=== PATIENT | female | born 1940 | race Two or more races ===

== ENCOUNTER 2018-07-29 11:00 | Outpatient (AMBR) | payer MEDICARE, MEDICAID, SELFPAY ==
--- NOTE | 2018-07-13 12:19 | PT.OIERPT ---
PT OP Initial Eval Patient Information Visit Reasons: post-op Medical Diagnosis: S52.591D Treatment Dx #1: Right Wrist Mobility Deficits Treatment Dx #2: Right Hand Weakness Start of Care: 07/13/18 Date of Onset: 06/22/18 Initial Assessment Subjective Pt is a 78 y/o female s/p right distal radius ORIF secondary to fall at home. Pt mention that she still has a lot of pain (7/10). Pt still has difficulty with gripping activities, lifting, chores, self, cooking, cleaning, and performing her recreational activities. Objective Right Wrist AROM Flexion: 10 deg Extension: neutral Radial Deviation: neutral Ulnar Deviation: 10 deg Pronation: 20 deg Supination: 30 deg Right Wrist MMTs: grossly 2-/5 Right 1st-5 digit flexion AROM 40% towards end range DASH score: 73% disabled Assessment Pt demonstrate right wrist mobility deficits with hand weakness s/p ORIF leading to decline function. Pt will benefit from physical therapy to increase strength, mobility, and work on functional tasks. 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 1) Decrease DASH score to 40% and improved right wrist AROM WFL in 8 wks to be able to perform chores at home 2) Increase right wrist MMTs to 3+/5 in 8 wks to be able to perform gripping activities 3) Decrease wrist pain to 3/10 in 8 wks to be able to perform self care activities 4) Indep with HEP Treatment Plan 1) Manual Therapy 2) Therapeutic Activities 3) Therapeutic Exercises 4) Modalities (ice, heat) Frequency and Duration 2 x wk for 8 wks Certification Dates: 07/13/18 to 10/11/18 Office Procedures PT Outpatient G-Codes Date of Service PT Date of Service: 07/13/18 G-Codes Carry/Moving/Handling Objects Carry Current Status G-Code: G8984: CL 60-80% Carry Goal Status G-Code:G8985: CJ 20-40% PT Procedures PT Date of Service: 07/13/18 OP PT Eval Mod Complex 30 minutes: Yes
--- NOTE | 2018-07-16 09:46 | PT.ODAYNRPT ---
PT Outpatient Daily Note Date of Service: July 16, 2018 OP Daily Note Visit Reasons: post-op Outpatient Physical Therapy Treatment Date: 07/16/18 Subjective: Pt's hand is feeling better. Pt notice that she can move her fingers with less pain. Objective: Please see flow chart for list of ther ex performed Assessment: improved finger flexion after therapy session. minimal pain throughout PT session Plan: Continue with PT Length of Time (minutes) of Treatment: 30 Minutes Office Procedures PT Outpatient G-Codes Date of Service PT Date of Service: 07/13/18 G-Codes Carry/Moving/Handling Objects Carry Current Status G-Code: G8984: CL 60-80% Carry Goal Status G-Code:G8985: CJ 20-40% PT Procedures PT Date of Service: 07/13/18 OP PT Eval Mod Complex 30 minutes: Yes PT Procedures PT Date of Service: 07/16/18 Therapeutic Exercise 30 minutes: Yes
--- NOTE | 2018-07-29 12:17 | PTNOTE_ITS ---
PT Outpatient Daily Note Date of Service: July 29, 2018 OP Daily Note Visit Reasons: post-op Outpatient Physical Therapy Treatment Date: 07/29/18 Subjective: Pt's wrist and hand is feeling a little better. Pt has been doing her exercises at home. Objective: Please see flow chart for list of ther ex performed Assessment: improved wrist AROM and finger motions. Pt is 50% towards making a full fist Plan: Continue with PT Length of Time (minutes) of Treatment: 30 Minutes Office Procedures PT Outpatient G-Codes Date of Service PT Date of Service: 07/13/18 G-Codes Carry/Moving/Handling Objects Carry Current Status G-Code: G8984: CL 60-80% Carry Goal Status G-Code:G8985: CJ 20-40% PT Procedures PT Date of Service: 07/13/18 OP PT Eval Mod Complex 30 minutes: Yes PT Procedures PT Date of Service: 07/16/18 Therapeutic Exercise 30 minutes: Yes PT Procedures PT Date of Service: 07/29/18 Therapeutic Exercise 15 minutes: Yes Manual Bilingual Executive Assistant 15 minutes: Yes
== END 2018-08-03 23:59 | disposition home or self-care (01) ==
PROVIDERS: PCP Family Medicine; Referring Provider Family Medicine; Visit Provider Orthopaedic Surgery
DX: S52.591D Other fractures of lower end of right radius, subsequent encounter for closed fracture with routine healing (principal); W19.XXXD Unspecified fall, subsequent encounter; Z98.890 Other specified postprocedural states; I10 Essential (primary) hypertension
CPT/HCPCS: 97110; 97140; 97162; G8984; G8985

== ENCOUNTER 2018-09-03 10:30 | Outpatient (AMBR) | payer MEDICARE, MEDICAID, SELFPAY ==
--- NOTE | 2018-08-05 12:31 | PT.ODAYNRPT ---
PT Outpatient Daily Note Date of Service: August 05, 2018 OP Daily Note Visit Reasons: post op Outpatient Physical Therapy Treatment Date: 08/05/18 Subjective: Pt's wrist feels much better. Pt mention that she's been doing her exercises at home. Pt fingers feels a lot more straight now. Pt still has difficulty with making a fist Objective: Please see flow chart for list of ther ex performed Assessment: 75% towards making a full fist. Pt still exhibit hypomobile MCP and PIP joint limiting full finger flexion. Notice mild swelling around her 2-4th digit and advised patient to ice at home Plan: Continue with PT Length of Time (minutes) of Treatment: 30 Minutes Office Procedures PT Procedures PT Date of Service: 08/05/18 Therapeutic Exercise 30 minutes: Yes
--- NOTE | 2018-08-07 14:09 | PT.ODAYNRPT ---
PT Outpatient Daily Note Date of Service: August 07, 2018 OP Daily Note Visit Reasons: post op Outpatient Physical Therapy Treatment Date: 08/07/18 Subjective: pt did follow up with surgeon yesterday and was prescribed medications for her R hand. pt states she uses warm luke water with salt to help with the swelling at home. Objective: see flow sheet. Assessment: observed a lot of swelling of the hand upon visit. pt likes to compensate by using the other hand to complete the ROM but cued pt to not use the L hand and focus on AROM of the R hand. used the wall to assist with wrist stretches in which she had difficulty with posture as she compensates due to lack of mobility of the wrist. PROM after the ther ex. pt tends to assist during PROM after cuing her to relax the hand she was able to tolerate better. still limited in all planes due to pain and swelling. Plan: continue POC per PT. Length of Time (minutes) of Treatment: 30 Minutes Office Procedures PT Procedures PT Date of Service: 08/05/18 Therapeutic Exercise 30 minutes: Yes PT Procedures PT Date of Service: 08/07/18 Therapeutic Exercise 30 minutes: Yes
--- NOTE | 2018-08-11 12:05 | PT.ODAYNRPT ---
PT Outpatient Daily Note Date of Service: August 11, 2018 OP Daily Note Visit Reasons: post op Outpatient Physical Therapy Treatment Date: 08/11/18 Subjective: Pt's hand feels better. Pt mention that she's getting closer to making a fist. Pt still has difficulty with gripping and lifting light object due to inability to make a fist Objective: Please see flow chart for list of ther ex performed Assessment: continue to improve with overall finger fist, frequent cues to correct power web flexion and extension exercise; Pt has the tendency to insert finger to far into web. No change in overall swelling of the finger. Plan: Continue with PT Length of Time (minutes) of Treatment: 30 Minutes Office Procedures PT Procedures PT Date of Service: 08/05/18 Therapeutic Exercise 30 minutes: Yes PT Procedures PT Date of Service: 08/07/18 Therapeutic Exercise 30 minutes: Yes PT Procedures PT Date of Service: 08/11/18 Therapeutic Exercise 30 minutes: Yes
--- NOTE | 2018-08-14 12:26 | PT.ODAYNRPT ---
PT Outpatient Daily Note Date of Service: August 14, 2018 OP Daily Note Visit Reasons: post op Outpatient Physical Therapy Treatment Date: 08/14/18 Subjective: Pt mention that her hands feel stiff today. Pt has been doing her exercises but working more on the fingers than nuckles Objective: Please see flow chart for list of the ex performed Assessment: tolerate exercises with minimal pain; slowly improving with finger AROM, however, 2nd and 3rd digit still hypomobile leading to decrease finger flexion Plan: Continue with PT Length of Time (minutes) of Treatment: 30 Minutes Office Procedures PT Procedures PT Date of Service: 08/05/18 Therapeutic Exercise 30 minutes: Yes PT Procedures PT Date of Service: 08/07/18 Therapeutic Exercise 30 minutes: Yes PT Procedures PT Date of Service: 08/11/18 Therapeutic Exercise 30 minutes: Yes PT Procedures PT Date of Service: 08/14/18 Therapeutic Exercise 30 minutes: Yes
--- NOTE | 2018-08-21 11:53 | PT.ODAYNRPT ---
PT Outpatient Daily Note Date of Service: August 21, 2018 OP Daily Note Visit Reasons: post op Outpatient Physical Therapy Treatment Date: 08/21/18 Subjective: pt continues to have pain of the hand upon visit. pt states compliance with HEP. pt is working on PIP flexion at home. Objective: see flow sheet. Assessment: pt demonstrated how close her fingers are in touching the palm of the hand. a lot of muscle fatigue with ther ex as she is motivated in getting better and stronger. pt pushes herself through the exercises. limited PIP flexion with ther ex. added finger ladder to help improve flexion of the digits. pt was able to flex the 2nd digit better than the rest but she continued with the exercise. advised pt to continue with HEP. Plan: continue POC per PT. Length of Time (minutes) of Treatment: 30 Minutes Office Procedures PT Procedures PT Date of Service: 08/05/18 Therapeutic Exercise 30 minutes: Yes PT Procedures PT Date of Service: 08/07/18 Therapeutic Exercise 30 minutes: Yes PT Procedures PT Date of Service: 08/21/18 Therapeutic Exercise 30 minutes: Yes PT Procedures PT Date of Service: 08/11/18 Therapeutic Exercise 30 minutes: Yes PT Procedures PT Date of Service: 08/14/18 Therapeutic Exercise 30 minutes: Yes
--- NOTE | 2018-08-24 13:20 | PT.ODAYNRPT ---
PT Outpatient Daily Note Date of Service: August 24, 2018 OP Daily Note Visit Reasons: post op Outpatient Physical Therapy Treatment Date: 08/24/18 Subjective: Pt mention that her hand still feels very stiff. Pt still has difficulty with making a full fist. Objective: Please see flow chart for list of ther ex performed Assessment: tolerate exercises with minimal pain; still exhibit hypomobile MCP joint 1st-5th digit Plan: Continue with PT Length of Time (minutes) of Treatment: 30 Minutes Office Procedures PT Procedures PT Date of Service: 08/05/18 Therapeutic Exercise 30 minutes: Yes PT Procedures PT Date of Service: 08/07/18 Therapeutic Exercise 30 minutes: Yes PT Procedures PT Date of Service: 08/21/18 Therapeutic Exercise 30 minutes: Yes PT Procedures PT Date of Service: 08/24/18 Therapeutic Exercise 30 minutes: Yes PT Procedures PT Date of Service: 08/11/18 Therapeutic Exercise 30 minutes: Yes PT Procedures PT Date of Service: 08/14/18 Therapeutic Exercise 30 minutes: Yes
--- NOTE | 2018-08-27 13:33 | PT.ODAYNRPT ---
PT Outpatient Daily Note Date of Service: August 27, 2018 OP Daily Note Visit Reasons: post op Outpatient Physical Therapy Treatment Date: 08/27/18 Subjective: pt states having soreness from sci-fit after last visit. pt is very compliant with HEP. Objective: see flow sheet. Assessment: noted less rest breaks during ther ex as indication of improved endurance and strength. at one point pt lost count of the reps but it did not seem to bother her as she felt no fatigue. pt does some weakness when flexing the PIP and DIP but she continues with the reps despite the limited strength with ball squeeze. Plan: continue POC per PT. Length of Time (minutes) of Treatment: 30 Minutes Office Procedures PT Procedures PT Date of Service: 08/05/18 Therapeutic Exercise 30 minutes: Yes PT Procedures PT Date of Service: 08/07/18 Therapeutic Exercise 30 minutes: Yes PT Procedures PT Date of Service: 08/21/18 Therapeutic Exercise 30 minutes: Yes PT Procedures PT Date of Service: 08/24/18 Therapeutic Exercise 30 minutes: Yes PT Procedures PT Date of Service: 08/11/18 Therapeutic Exercise 30 minutes: Yes PT Procedures PT Date of Service: 08/14/18 Therapeutic Exercise 30 minutes: Yes PT Procedures PT Date of Service: 08/27/18 Therapeutic Exercise 30 minutes: Yes
--- NOTE | 2018-09-01 11:13 | PT.ODS1RPT ---
PT OP Progress/Discharge Note Date of Service: September 01, 2018 Progress Note/DC Note Progress Note/Discharge Note: Progress Note Patient Information Visit Reasons: post op Medical Diagnosis: S52.591D Treatment Dx #1: Right Wrist Mobility Deficits Treatment Dx #2: Right Hand Weakness Service Continue Service or Discharge: Continue Service Certification Date Certification Dates: 09/01/17 to 11/30/18 Status Subjective: Pt mention that her fingers and hand is still stiff. Pt has difficulty with gripping, lifting, chores, cooking, and performing her recreational activities. Pt mention that she continues to do her HEP but it doesn't seems to help improve her AROM. Pt still has 6/10 pain with and without activities. Objective: Right Wrist AROM Flexion: 40 deg Extension: 20 deg Radial Deviation: 10 deg Ulnar Deviation: 15 deg Pronation/Supination: WFL Right Wrist MMTs: grossly 3-/5 Right 1st Digit-5th flexion AROM: 60% towards end range Palpation: hypomobile MCP joint 2nd and 3rd digit Assessment: Pt slowly improves with wrist AROM and finger mobility allowing her to perform light ADLs at home. Pt's slow progression relates to perform HEP incorrectly at home as well as not doing her exercises frequently. Pt educated to continue HEP at home to help increase wrist and finger mobility at a faster rate. Due to Pt's slow progression Pt still has difficulty with gripping, lifting, cooking independently, and performing her chores around the house. Pt has not met set goals yet and will continue to benefit from PT, thank you for your referrals. Plan: Continue with PT and add 8 sessions (2 x wk for 4 wks) Office Procedures PT Procedures PT Date of Service: 08/05/18 Therapeutic Exercise 30 minutes: Yes PT Procedures PT Date of Service: 08/07/18 Therapeutic Exercise 30 minutes: Yes PT Procedures PT Date of Service: 08/21/18 Therapeutic Exercise 30 minutes: Yes PT Procedures PT Date of Service: 08/24/18 Therapeutic Exercise 30 minutes: Yes PT Procedures PT Date of Service: 08/11/18 Therapeutic Exercise 30 minutes: Yes PT Procedures PT Date of Service: 08/14/18 Therapeutic Exercise 30 minutes: Yes PT Procedures PT Date of Service: 08/27/18 Therapeutic Exercise 30 minutes: Yes PT Procedures PT Date of Service: 09/01/18 Therapeutic Exercise 15 minutes: Yes Manual Horse Trekking Guide 15 minutes: Yes Self Care/Home Mgmt 15 minutes: Yes
--- NOTE | 2018-09-03 12:05 | PT.ODAYNRPT ---
PT Outpatient Daily Note Date of Service: September 03, 2018 OP Daily Note Visit Reasons: post op Outpatient Physical Therapy Treatment Date: 09/03/18 Subjective: pt doing well today as she mentioned she picked fruit from her back yard with the R hand but when she had to reach for the higher ones she used the L hand. Objective: see flow sheet. Assessment: pt first attempted the Yellow resistance with exercises and it seemed to easy for her so we switched to the Red resistance which is a level higher. pt did well with that one as it was causing her muscles to contract more and had muscle fatigue but she did not mind. added light resistance to the sci-fit and she did well as in she did not stop for rest nor c/o too much resistance. pt was able to maintain good speed without rest. Plan: continue POC per PT. Length of Time (minutes) of Treatment: 30 Minutes Office Procedures PT Procedures PT Date of Service: 08/05/18 Therapeutic Exercise 30 minutes: Yes PT Procedures PT Date of Service: 08/07/18 Therapeutic Exercise 30 minutes: Yes PT Procedures PT Date of Service: 08/21/18 Therapeutic Exercise 30 minutes: Yes PT Procedures PT Date of Service: 08/24/18 Therapeutic Exercise 30 minutes: Yes PT Procedures PT Date of Service: 08/11/18 Therapeutic Exercise 30 minutes: Yes PT Procedures PT Date of Service: 08/14/18 Therapeutic Exercise 30 minutes: Yes PT Procedures PT Date of Service: 08/27/18 Therapeutic Exercise 30 minutes: Yes PT Procedures PT Date of Service: 09/01/18 Therapeutic Exercise 15 minutes: Yes Manual Manager Relationship 15 minutes: Yes Self Care/Home Mgmt 15 minutes: Yes PT Procedures PT Date of Service: 09/03/18 Therapeutic Exercise 30 minutes: Yes
== END 2018-09-03 23:59 | disposition home or self-care (01) ==
PROVIDERS: PCP Family Medicine; Referring Provider Family Medicine; Visit Provider Family Medicine
DX: M25.531 Pain in right wrist (principal); R53.1 Weakness; S52.591D Other fractures of lower end of right radius, subsequent encounter for closed fracture with routine healing; W19.XXXD Unspecified fall, subsequent encounter
CPT/HCPCS: 97110; 97140; 97535

== ENCOUNTER → 2024-08-30 | Outpatient (CLI) | payer OTHER, MEDICAID, SELFPAY ==
[2024-08-30 14:57] LABS: Collection Type, Urine Clean Catch
[2024-08-30 16:00] LABS: Bilirubin,Urine Negative (Negative); Blood,Urine 1+ (Negative); Clarity,Urine Turbid (Clear/Hazy); Color,Urine Yellow (Lt Yel-Yel); Glucose, Urine Negative (Negative); Ketones,Urine Negative (Negative); Leukocyte Esterase,Urine Positive (Negative); Nitrite,Urine Positive (Negative); PH,Urine 6.5 (5.0-7.0); Protein,Urine Trace (Neg - Trace); RBC,Urine 13 /hpf (0-3); Specific Gravity,Urine 1.013 (1.001-1.035); Squamous Epithelial Cell,Urine 1 /hpf (0-5); Urobilinogen,Urine Negative mg/dL (0.0-1.0); WBC,Urine 161 /hpf (0-5)
== END | disposition home or self-care (01) ==
LOC: SLDO 14:51
PROVIDERS: PCP Specialist; Referring Provider Specialist; Visit Provider Specialist
DX: R30.0 Dysuria (principal)
CPT/HCPCS: 81001; 87077; 87086; 87186

== ENCOUNTER → 2024-09-22 | Outpatient (CLI) | payer OTHER, MEDICAID, SELFPAY ==
[2024-09-22 16:32] LABS: Basophils # (Auto) 0.1 Thou/mm3 (0.0-0.2); Basophils % (Auto) 1 % (0-2.5); Eosinophils # (Auto) 0.2 Thou/mm3 (0.0-0.5); Eosinophils % (Auto) 2 % (0-10); Hematocrit 38.8 % (36.0-46.0); Hemoglobin 12.6 g/dL (12.0-16.0); Immature Granulocytes % (Auto) 0 % (0-0); Immature Granulocytes Auto 0.02 Thou/mm3 (0.00-0.00); Lymphocytes # (Auto) 2.9 Thou/mm3 (1.0-4.8); Lymphocytes % (Auto) 32 % (10-50); Mean Corpuscular HGB Conc 32.5 g/dl (31.0-37.0); Mean Corpuscular Hemoglobin 28.8 pg (25.0-35.0); Mean Corpuscular Volume 89 fL (80-100); Monocytes # (Auto) 0.8 Thou/mm3 (0.0-0.8); Monocytes % (Auto) 8 % (0-12); Neutrophils # (Auto) 5.1 Thou/mm3 (1.8-7.7); Neutrophils % (Auto) 57 % (37-80); Nucleated Red Blood Cell % 0 /100 WBC (0); Platelet Count 231 Thou/mm3 (140-440); RDW Standard Deviation 41.7 fL (36.4-46.3); Red Blood Count 4.37 Miln/mm3 (4.00-5.20)
[2024-09-22 16:46] LABS: Alanine Aminotransferase 18 U/L (10-49); Albumin, Serum 4.2 gm/dL (3.4-4.8); Albumin/Globulin Ratio 1.4 (1.2-2.2); Alkaline Phosphatase 88 U/L (46-116); Anion Gap 10 (7-16); Aspartate Amino Transferase 24 U/L (0-34); BUN/Creatinine Ratio 25 Ratio (12-20); Bilirubin,Total 0.7 mg/dL (0.3-1.2); Blood Urea Nitrogen 20 mg/dL (9-23); C-Reactive Protein < 0.4 mg/dL (0.0-0.9); Calcium 9.8 mg/dL (8.3-10.6); Calcium (Corrected) 9.8 mg/dL (8.5-10.1); Carbon Dioxide 28.5 mMol/L (20.0-31.0); Chloride 102 mMol/L (98-107); Creatinine (Component) 0.8 mg/dL (0.6-1.3); Glucose 85 mg/dL (74-106); Osmolality,Calculated 281 (275-295); Potassium 4.9 mMol/L (3.4-5.1); Sodium 140 mMol/L (136-145); Total Protein 7.2 gm/dL (5.7-8.2); eGFR > 60 See Note
[2024-09-22 17:03] LABS: Sed Rate (ESR) 8 mm/hr (0-30)
[2024-09-22 17:38] LABS: Hepatitis A Antibody IgM Non Reactive (Non React); Hepatitis B Core Antibody IgM Non Reactive (Non React); Hepatitis B Surface Antigen Non Reactive (Non React); Hepatitis C Antibody Non Reactive (Non React)
[2024-09-30 06:50] LABS: CCP Antibody (IgG)* <16 Units
== END | disposition home or self-care (01) ==
LOC: COPL 13:39
PROVIDERS: PCP Family Medicine; Referring Provider Internal Medicine; Visit Provider Internal Medicine
DX: G62.9 Polyneuropathy, unspecified (principal); I10 Essential (primary) hypertension; M77.31 Calcaneal spur, right foot; M79.671 Pain in right foot; T45.8X Poisoning by, adverse effect of and underdosing of other primarily systemic and hematological agents; Z87.39 Personal history of other diseases of the musculoskeletal system and connective tissue
CPT/HCPCS: 36415; 80053; 80074; 85025; 85652; 86140; 86200

== ENCOUNTER → 2024-10-05 | Outpatient (CLI) | payer MEDICARE, MEDICAID, SELFPAY ==
[2024-10-05 12:56] LABS: Collection Type, Urine Clean Catch
[2024-10-05 13:11] LABS: Basophils # (Auto) 0.1 Thou/mm3 (0.0-0.2); Basophils % (Auto) 1 % (0-2.5); Eosinophils # (Auto) 0.1 Thou/mm3 (0.0-0.5); Eosinophils % (Auto) 1 % (0-10); Hematocrit 40.5 % (36.0-46.0); Hemoglobin 13.2 g/dL (12.0-16.0); Immature Granulocytes % (Auto) 0 % (0-0); Immature Granulocytes Auto 0.02 Thou/mm3 (0.00-0.00); Lymphocytes # (Auto) 2.4 Thou/mm3 (1.0-4.8); Lymphocytes % (Auto) 27 % (10-50); Mean Corpuscular HGB Conc 32.6 g/dl (31.0-37.0); Mean Corpuscular Hemoglobin 28.6 pg (25.0-35.0); Mean Corpuscular Volume 88 fL (80-100); Monocytes # (Auto) 0.6 Thou/mm3 (0.0-0.8); Monocytes % (Auto) 7 % (0-12); Neutrophils # (Auto) 5.6 Thou/mm3 (1.8-7.7); Neutrophils % (Auto) 64 % (37-80); Nucleated Red Blood Cell % 0 /100 WBC (0); Platelet Count 235 Thou/mm3 (140-440); RDW Standard Deviation 40.8 fL (36.4-46.3); Red Blood Count 4.61 Miln/mm3 (4.00-5.20); White Blood Count 8.8 Thou/mm3 (3.6-11.0)
[2024-10-05 13:12] LABS: Bilirubin,Urine Negative (Negative); Blood,Urine Negative (Negative); Clarity,Urine Clear (Clear/Hazy); Color,Urine Lt-Yellow (Lt Yel-Yel); Culture Indicated,Urine Not Indicated; Glucose, Urine Negative (Negative); Hyaline Casts,Urine < 1 /hpf (0-1); Ketones,Urine Negative (Negative); Leukocyte Esterase,Urine Negative (Negative); Nitrite,Urine Negative (Negative); Protein,Urine Negative (Neg - Trace); RBC,Urine 4 /hpf (0-3); Specific Gravity,Urine 1.012 (1.001-1.035); Squamous Epithelial Cell,Urine 1 /hpf (0-5); Urobilinogen,Urine Negative mg/dL (0.0-1.0); WBC,Urine 1 /hpf (0-5)
[2024-10-05 13:25] LABS: Vitamin D 25 Hydroxy Total 25.4 ng/mL (7.3-40.2)
[2024-10-05 13:34] LABS: Alanine Aminotransferase 18 U/L (10-49); Albumin, Serum 4.3 gm/dL (3.4-4.8); Albumin/Globulin Ratio 1.3 (1.2-2.2); Alkaline Phosphatase 84 U/L (46-116); Anion Gap 6 (7-16); Aspartate Amino Transferase 25 U/L (0-34); BUN/Creatinine Ratio 18 Ratio (12-20); Bilirubin,Total 0.8 mg/dL (0.3-1.2); Blood Urea Nitrogen 16 mg/dL (9-23); Calcium 9.6 mg/dL (8.3-10.6); Calcium (Corrected) 9.6 mg/dL (8.5-10.1); Carbon Dioxide 30.3 mMol/L (20.0-31.0); Chloride 106 mMol/L (98-107); Cholesterol 210 mg/dL (132-200); Creatinine (Component) 0.9 mg/dL (0.6-1.3); Globulin 3.3 gm/dL (2.3-3.5); Glucose 101 mg/dL (74-106); HDL Cholesterol 53 mg/dL (40-60); LDL Cholesterol,Calculated 120 mg/dL (0-130); Osmolality,Calculated 284 (275-295); Potassium 4.7 mMol/L (3.4-5.1); Sodium 142 mMol/L (136-145); Thyroid Stimulating Hormone 2.62 uIU/mL (0.55-4.78); Total Protein 7.6 gm/dL (5.7-8.2); Triglycerides 186 mg/dL (30-150); eGFR > 60 See Note
== END | disposition home or self-care (01) ==
LOC: COPL 12:15
PROVIDERS: PCP Family Medicine; Referring Provider Family Medicine; Visit Provider Family Medicine
DX: Z00.00 Encounter for general adult medical examination without abnormal findings (principal); Z13.0 Encounter for screening for diseases of the blood and blood-forming organs and certain disorders involving the immune mechanism; Z13.29 Encounter for screening for other suspected endocrine disorder; Z13.21 Encounter for screening for nutritional disorder; Z13.220 Encounter for screening for lipoid disorders; Z13.1 Encounter for screening for diabetes mellitus; Z12.11 Encounter for screening for malignant neoplasm of colon; Z83.3 Family history of diabetes mellitus
CPT/HCPCS: 36415; 80053; 80061; 81001; 82306; 84443; 85025

== ENCOUNTER → 2024-10-19 | Outpatient (CLI) | payer MEDICARE, MEDICAID, SELFPAY ==
[2024-10-25 06:55] LABS: Fecal Globin Result NOT DETECTED (NOT DETECTED)
== END | disposition home or self-care (01) ==
LOC: SLDO 14:33
PROVIDERS: PCP Family Medicine; Referring Provider Family Medicine; Visit Provider Family Medicine
DX: Z00.00 Encounter for general adult medical examination without abnormal findings (principal); Z12.11 Encounter for screening for malignant neoplasm of colon; Z13.0 Encounter for screening for diseases of the blood and blood-forming organs and certain disorders involving the immune mechanism; Z13.29 Encounter for screening for other suspected endocrine disorder; Z13.21 Encounter for screening for nutritional disorder; Z83.3 Family history of diabetes mellitus; Z13.220 Encounter for screening for lipoid disorders; Z13.1 Encounter for screening for diabetes mellitus
CPT/HCPCS: 82274; G0328

== ENCOUNTER → 2025-04-25 | Outpatient (CLI) | payer MEDICARE, MEDICAID, SELFPAY ==
--- NOTE | 2025-04-25 15:00 | XR_ITS ---
Examination: Transvaginal ultrasound of the pelvis, complete Technique: Transvaginal sonographic images pelvis performed using little scale imaging Exam date and time: April 25, 2025 1510 hours INDICATIONS: Right lower abdominal pelvic pain 6 months FINDINGS: Absent uterus, absent ovaries No free fluid in the pelvis No pelvic mass IMPRESSION: No free fluid in the pelvis, no pelvic mass.
--- NOTE | 2025-04-25 15:00 | XR_ITS ---
Examination: Pelvic ultrasound, transabdominal, complete Technique: Transabdominal ultrasound of the pelvis performed using grayscale imaging Date and time of exam: April 25, 2025, 1503 hours INDICATIONS: Right lower abdominal pain beginning 6 months ago FINDINGS: Absent uterus, absent ovaries No free fluid in the pelvis, no pelvic mass IMPRESSION: No free fluid in the pelvis, no pelvic mass
== END | disposition home or self-care (01) ==
PROVIDERS: PCP Family Medicine; Referring Provider Family Medicine; Visit Provider Family Medicine
DX: N94.10 Unspecified dyspareunia (principal); M25.551 Pain in right hip
CPT/HCPCS: 76830; 76856

== ENCOUNTER → 2025-07-12 | Outpatient (CLI) | payer MEDICARE, MEDICAID, SELFPAY ==
--- NOTE | 2025-07-12 09:35 | XR_ITS ---
Examination: Right hip AP, lateral, AP pelvis 3 views Technique: Hip AP lateral, AP pelvis, 3 views Exam date and time: July 12, 2025, 1020 hours INDICATIONS: Right hip pain beginning 1 month ago FINDINGS: Severe osteopenia. No right or left hip fracture or dislocation Bones of the pelvis intact Mild bilateral hip osteoarthritis IMPRESSION: Mild bilateral hip osteoarthritis.
[2025-07-12 11:43] LABS: Basophils # (Auto) 0.1 Thou/mm3 (0.0-0.2); Basophils % (Auto) 1 % (0-2.5); Eosinophils # (Auto) 0.2 Thou/mm3 (0.0-0.5); Eosinophils % (Auto) 2 % (0-10); Hematocrit 41.1 % (36.0-46.0); Hemoglobin 13.1 g/dL (12.0-16.0); Immature Granulocytes Auto 0.02 Thou/mm3 (0.00-0.00); Lymphocytes # (Auto) 2.3 Thou/mm3 (1.0-4.8); Lymphocytes % (Auto) 30 % (10-50); Mean Corpuscular HGB Conc 31.9 g/dl (31.0-37.0); Mean Corpuscular Hemoglobin 28.7 pg (25.0-35.0); Mean Corpuscular Volume 90 fL (80-100); Monocytes # (Auto) 0.6 Thou/mm3 (0.0-0.8); Monocytes % (Auto) 8 % (0-12); Neutrophils # (Auto) 4.7 Thou/mm3 (1.8-7.7); Neutrophils % (Auto) 60 % (37-80); Nucleated Red Blood Cell # 0.00 Thou/mm3 (0.00-0.00); Nucleated Red Blood Cell % 0 /100 WBC (0); Platelet Count 219 Thou/mm3 (140-440); RDW Standard Deviation 41.6 fL (36.4-46.3); Red Blood Count 4.57 Miln/mm3 (4.00-5.20); White Blood Count 7.9 Thou/mm3 (3.6-11.0)
[2025-07-12 12:09] LABS: Vitamin D 25 Hydroxy Total 29.9 ng/mL (7.3-40.2)
[2025-07-12 12:12] LABS: Alanine Aminotransferase 18 U/L (10-49); Albumin, Serum 4.5 gm/dL (3.4-4.8); Albumin/Globulin Ratio 1.3 (1.2-2.2); Alkaline Phosphatase 87 U/L (46-116); Anion Gap 7 (7-16); Aspartate Amino Transferase 25 U/L (0-34); BUN/Creatinine Ratio 23 Ratio (12-20); Bilirubin,Total 0.7 mg/dL (0.3-1.2); Blood Urea Nitrogen 16 mg/dL (9-23); Calcium 9.6 mg/dL (8.3-10.6); Calcium (Corrected) 9.6 mg/dL (8.5-10.1); Carbon Dioxide 30.7 mMol/L (20.0-31.0); Cardiac Risk Estimate 3.9 RATIO (3.7-5.6); Chloride 106 mMol/L (98-107); Cholesterol 216 mg/dL (132-200); Creatinine (Component) 0.7 mg/dL (0.6-1.3); Globulin 3.5 gm/dL (2.3-3.5); Glucose 107 mg/dL (74-106); HDL Cholesterol 56 mg/dL (40-60); LDL Cholesterol,Calculated 131 mg/dL (0-130); Osmolality,Calculated 288 (275-295); Potassium 4.5 mMol/L (3.4-5.1); Sodium 144 mMol/L (136-145); Thyroid Stimulating Hormone 2.46 uIU/mL (0.55-4.78); Total Protein 8.0 gm/dL (5.7-8.2); Triglycerides 144 mg/dL (30-150); eGFR > 60 See Note
[2025-07-12 12:29] LABS: Collection Type, Urine Clean Catch
[2025-07-12 13:39] LABS: Bilirubin,Urine Negative (Negative); Blood,Urine Negative (Negative); Clarity,Urine Clear (Clear/Hazy); Color,Urine Lt-Yellow (Lt Yel-Yel); Culture Indicated,Urine Not Indicated; Glucose, Urine Negative (Negative); Ketones,Urine Negative (Negative); Leukocyte Esterase,Urine Negative (Negative); Nitrite,Urine Negative (Negative); PH,Urine 7.0 (5.0-7.0); Protein,Urine Negative (Neg - Trace); RBC,Urine 3 /hpf (0-3); Specific Gravity,Urine 1.016 (1.001-1.035); Squamous Epithelial Cell,Urine 2 /hpf (0-5); Urobilinogen,Urine Negative mg/dL (0.0-1.0); WBC,Urine 1 /hpf (0-5)
[2025-07-12 13:40] LABS: Creatinine MALB Rnd Ur 77 mg/dL (30-125); Microalbumin Creat Ratio 31 mg/gCrea (<30); Microalbumin, Random Urine 24 mg/L (0-300)
== END | disposition home or self-care (01) ==
LOC: CDIM 09:27 → COPL 11:15
PROVIDERS: PCP Family Medicine; Referring Provider Family Medicine; Visit Provider Radiology Diagnostic Radiology
DX: M16.0 Bilateral primary osteoarthritis of hip (principal); Z00.00 Encounter for general adult medical examination without abnormal findings; I10 Essential (primary) hypertension; Z13.0 Encounter for screening for diseases of the blood and blood-forming organs and certain disorders involving the immune mechanism; Z13.29 Encounter for screening for other suspected endocrine disorder; Z13.21 Encounter for screening for nutritional disorder; Z13.220 Encounter for screening for lipoid disorders; Z13.1 Encounter for screening for diabetes mellitus
CPT/HCPCS: 36415; 73502; 80053; 80061; 81001; 82043; 82306; 82570; 84443; 85025